=== PATIENT | female | born 1950 | race Caucasian/White ===

== ENCOUNTER → 2019-09-12 14:33 | Outpatient (CLI) | payer MEDICARE, OTHER, SELFPAY ==
--- NOTE | 2019-09-12 | DI.MG.S_ITS ---
BILATERAL DIGITAL SCREENING MAMMOGRAM 3D/2D WITH CAD: 09/12/2019 CLINICAL: Routine screening. Baseline exam. No prior exams were available for comparison. The tissue of both breasts is heterogeneously dense. This may lower the sensitivity of mammography. Current study was also evaluated with a Computer Aided Detection (CAD) system. No significant masses, calcifications, or other findings are seen in either breast. IMPRESSION: NEGATIVE There is no mammographic evidence of malignancy. A 1 year screening mammogram is recommended. This exam was interpreted at Station ID: [id number]. NOTE: For mammograms, a report in lay terms will be sent to the patient. Approximately 15% of breast malignancies will not be visualized mammographically. In the management of a palpable breast mass, a negative mammogram must not discourage biopsy of a clinically suspicious lesion. Electronically Signed By: Gissel bustamante/shanna:09/13/2019 11:09:04 letter sent: Normal Exam ACR BI-RADS Category 1: Negative [id number]
== END ==
PROVIDERS: Visit Provider Student in an Organized Health Care Education/Training Program
DX: Z12.31 Encounter for screening mammogram for malignant neoplasm of breast (principal); M85.852 Other specified disorders of bone density and structure, left thigh; Z78.0 Asymptomatic menopausal state; I10 Essential (primary) hypertension; F17.200 Nicotine dependence, unspecified, uncomplicated
CPT/HCPCS: 77063; 77067; 77080

== ENCOUNTER → 2019-10-03 13:29 | Outpatient (CLI) | payer MEDICARE, OTHER, SELFPAY ==
--- NOTE | 2019-10-03 | DI.MRI.S_ITS ---
PROCEDURE: MR LUMBAR SPINE WO CON INDICATIONS: Low back pain TECHNIQUE: Noncontrast sagittal T1 spin echo and T2 fast echo, sagittal STIR, axial T1 and T2 fast spin echo through the lumbar spine. In cases with scoliosis, additional coronal T2 fast spin echo may be performed. COMPARISON: None. FINDINGS: Image quality: Excellent. Alignment and Curvature: There is moderate dextroconvex scoliotic curvature with apex at L3. There is trace anterolisthesis of L3 on L2 or, trace retrolisthesis of L5 on S1. Bone Marrow: Marrow is of normal overall signal. Moderate reactive endplate changes are present at L2-3, minimal L3-4, L4-5 and L5-S1. No acute vertebral body compression fractures. Spinal Cord: Conus medullaris terminates at the L2 level. Visualized cord demonstrates normal signal and size. Paraspinous Soft Tissues: No paravertebral masses. Discs: Moderate to severe desiccation is present throughout the lumbar spine most notable at L4-5 and L5-S1. L1-L2: Mild disc bulge with mild spinal stenosis. There is a superimposed protrusion/extrusion which extends in the posterior right paracentral location extending caudally through much of the level of L2. No foraminal narrowing. Mild facet and ligamentum flavum hypertrophy. L2-L3: Mild disc bulge with moderate to severe spinal stenosis. Superimposed posterior central protrusion is present which becomes partially contiguous with protrusion/extrusion identified extending along the length of L2. Severe left and mild right foraminal narrowing with facet and ligamentum flavum hypertrophy. L3-L4: Mild disc bulge with severe spinal stenosis and canal compression. There is moderate to severe left foraminal narrowing with facet and ligamentum flavum hypertrophy. L4-L5: Mild disc bulge with severe spinal stenosis. Severe left foraminal narrowing with nerve root flattening. Facet and ligamentum flavum hypertrophy are present. L5-S1: The mild disc bulge with superimposed posterior central protrusion. There is severe right and mild to moderate left foraminal narrowing without nerve root flattening on the right. Facet hypertrophy is present. IMPRESSION: 1. Disc bulges are present at L1-2 and L2-3. There is protrusion/extrusion which extends between the L1-L2 and L2-3 disc spaces as described above. 2. Multilevel spinal stenosis predominantly secondary to scoliotic curvature as well as facet/ligamentum flavum arthropathy. It is most severe at L4-5. 3. Multilevel foraminal narrowing secondary to facet/ligamentum flavum arthropathy and scoliotic curvature most notable at L4-5 and L5-S1. Dictated by: Julianna López M.D. on 10/03/2019 at 15:57 Approved by: Julianna López M.D. on 10/03/2019 at 16:19
== END ==
PROVIDERS: Visit Provider Orthopaedic Surgery Orthopaedic Surgery of the Spine
DX: M51.26 Other intervertebral disc displacement, lumbar region (principal); M48.061 Spinal stenosis, lumbar region without neurogenic claudication; M48.07 Spinal stenosis, lumbosacral region
CPT/HCPCS: 72148

== ENCOUNTER → 2019-11-26 12:35 | Outpatient (CLI) | payer MEDICARE, OTHER, SELFPAY ==
--- NOTE | 2019-11-26 | DI.US.S_ITS ---
PROCEDURE: US ABDOMEN COMPLETE INDICATIONS: EPIGASTRIC PAIN TECHNIQUE: Real-time scanning was performed of the abdominal and retroperitoneal organs, with image documentation. COMPARISON: [facility], MR, MR LUMBAR SPINE WO CON, 10/03/2019, 13:38. FINDINGS: Liver: Liver is normal in size and homogeneous in echotexture except for presence of a small hyperechoic ovoid structure at the upper margin of the left hepatic lobe posteriorly, which by appearance is suggestive of a small hemangioma measuring 9 x 15 mm.. Gallbladder: The gallbladder appears normal Biliary ducts: Intrahepatic bile ducts are non-dilated. Extrahepatic bile duct caliber measures 3.8 mm. Normal is 6-7 mm or less in diameter, or 10 mm or less post-cholecystectomy. Pancreas: Not seen due to bowel gas. Spleen: Spleen is normal in size and homogeneous in echotexture. Kidneys: Kidneys are normal in size and echotexture. Right kidney measures 9.5 cm long; left kidney measures 9.0 cm long. No hydronephrosis or nephrolithiasis. No solid masses. Aorta: Visualized aorta is normal in caliber at less than 3 cm. the distal third of the aorta could not be seen due to bowel gas. Iliacs: Not seen due to bowel gas. IVC: Intrahepatic inferior vena cava is patent. Miscellaneous: No free abdominal fluid. IMPRESSION: Incidental note is made of a hyperechoic focus within the superior posterior margin of the left hepatic lobe, with an appearance most likely representing a hemangioma. Followup ultrasound is recommended, targeted single organ, in 6 months. Relatively poor visualization of the pancreas, and the distal third of the aorta and iliac arteries due to overlying bowel gas. Dictated by: Guido Sutton M.D. on 11/26/2019 at 13:49 Approved by: Guido Sutton M.D. on 11/26/2019 at 13:54
== END ==
PROVIDERS: PCP Student in an Organized Health Care Education/Training Program; Referring Provider Internal Medicine; Visit Provider Internal Medicine
DX: R10.13 Epigastric pain (principal); R63.4 Abnormal weight loss
CPT/HCPCS: 76700

== ENCOUNTER → 2020-03-13 14:56 | Outpatient (CLI) | payer MEDICARE, OTHER, SELFPAY ==
[2020-03-14 00:36] LABS: COVID19 Sendout Not Detected (Not Detect)
== END ==
PROVIDERS: PCP Student in an Organized Health Care Education/Training Program; Visit Provider Nurse Practitioner
DX: Z01.812 Encounter for preprocedural laboratory examination (principal)
CPT/HCPCS: 87635

== ENCOUNTER 2020-03-16 06:15 | Inpatient (IN) | payer MEDICARE, OTHER, SELFPAY ==
[2020-03-11 14:02] VITALS: BMI 19.1
[2020-03-16] VITALS (21 sets, daily range): BP systolic 96–162; BP diastolic 50–82; PULSE 71–100; RESP 12–18; TEMP 35.6–36.8; O2SAT 89–100; BMI 19.1
--- NOTE | 2020-03-16 | DI.RAD.S_ITS ---
PROCEDURE: XR LUMBAR SPINE 2-3V INDICATIONS: L2-3-4-5-S1 TLIF TECHNIQUE: 2 views of the lumbar spine were acquired. COMPARISON: None. FINDINGS: Bones: Bilateral transverse pedicle screws and vertical fixation rods have been placed from L2-S1, with interbody cage disc prosthesis devices at each of the intervening levels. Soft tissues: Overlying bowel gas pattern is normal. No suspicious soft tissue calcifications. IMPRESSION: Normal alignment established after L2-S1 posterior fusion bilaterally, with intervening interbody cage disc prosthesis devices placed. Dictated by: Guido Sutton M.D. on 03/16/2020 at 14:11 Approved by: Guido Sutton M.D. on 03/16/2020 at 14:22
[2020-03-16] MEDS: LACTATED RINGERS 1,000 ML 100 ML IV ×2 (07:00→11:14)
--- NOTE | 2020-03-16 07:36 | PM.PREOP ---
Pre-operative Note COVID-19 COVID-19 status: Negative Result date/Date tested (Pos, Neg/Pending): 03/14/20 Interval Note History & Physical reviewed/Exam performed by Physician: Yes Changes to H&P: No
[2020-03-16] MEDS: CEFAZOLIN 2 GM/100 ML FROZ.PIGGY IV (07:48)
[2020-03-16] MEDS: ACETAMINOPHEN IV 1,000 MG/100 ML VIAL 400 MG IV (08:00)
--- NOTE | 2020-03-16 08:23 | SUR.OPER ---
Prone on spine table, head in foam head support, padded chest and pelvic supports, gel pad at knees, lower legs supported by pillows; nipples, genitalia and toes free of pressure, arms secured on foam padded arm boards at <90 degrees abduction. Tape over blanket at thigh secured to table.
[2020-03-16] MEDS: BUPIVACAINE 0.25% W/ EPI 30 ML VIAL INJ (08:37)
[2020-03-16] MEDS: BUPIVACAINE LIPOSOME 266 MG/20 ML VIAL INJ (08:38)
--- NOTE | 2020-03-16 08:40 | SUR.OPER ---
GLASSES IN LABELED BAG TO PACU WITH PATIENT
[2020-03-16] MEDS: CEFAZOLIN 1 GM/50 ML FROZ.PIGGY IV ×2 (13:51→21:44)
--- NOTE | 2020-03-16 14:03 | P.OP_ITS ---
Operative Date/Time/Diagnoses Date of procedure: 03/16/20 Time of procedure: 08:03 Pre-op diagnosis: 1. Lumbar scoliosis 2. L2-S1 spondylolisthesis 3. Lumbar spinal stenosis Post-op diagnosis: same Procedure & Clinicians Procedure: 1. L2-3, L3-4, L4-5, L5-S1 Postero-lateral and posterior interbody fusion 2. L2-3, L3-4, L4-5, L5-S1 interbody cage placement. 3. L2-3, L3-4, L4-5, L5-S1 decompressive laminectomy with bilateral facetecomies 4. L2-3, L3-4, L4-5, L5-S1 Posterior segmental instrumentation 5. [place] of bone marrow from iliac crest 6. Utilization of microsurgical technique and operating microscope Same procedure as scheduled: Yes Indications: Patient has been having chronic back pain and worsening lumbar radiculopathy. Patient has scoliosis spondylolisthesis and spinal stenosis causing back pain and leg pain and leg weakness. Patient failed multiple conservative management with worsening pain weakness and numbness in her lower extremity. Patient has been having difficulty performing activity of daily living. After discussing risks benefits of treatment options, patient elected proceed with surgery. Surgeon: Gregg Almendarez Bicycle Assembler: Kayla Barnett Click Yes if Unassisted: No Anesthesia Type: General Operative Notes Closure Type: primary Specimen(s): none sent Prosthetic devices, grafts, tissues, transplants, or devices: Globus revolve screws, Rise cages Applied: catheter Estimated Blood Loss (mL): 250 Blood products transfused: none Procedure in detail: Patient was seen in the preoperative area. Risks and benefits of the surgery was discussed with the patient. Informed consent was obtained from the patient and placed in the chart. Surgical site was marked. Patient was taken to the operative room. General anesthesia was administered. Prophylactic antibiotic was given to the patient less than 30 min before the incision was made. Patient was placed into a prone position on the Fabian table. Patient's back was then prepped and draped in the sterile fashion. Time-o ut was performed at this time. Using AP and lateral C-arm imaging the interval between L2-S1 was identified and marked on patient's back. A 3 inch incision 2 in from midline was made on the left side first. The fascia was incised in line with skin incision. Globus MARS retractors was placed inside the incision and docked onto the L2, L3, L4 and L5 lamina. Using microsurgical technique and operating microscope, a L2, L3, L4 and L5 laminectomy and L2-3, L3-4, L4-5 L5-S1 facetectomy was performed using a Kerrison rongeur. Patient was found have severe neural foramen stenosis at all levels and moderate stenosis at L2-3 L3-4 and mild stenosis at L4-5-L5-S1. The stenosis was fully decompressed after decompression was completed at all levels. The disc space at L2-3, L3-4, L4-5, L5-S1 was identified. And a total diskectomy was performed at L2-3, L3-4, L4-5, L5-S1 level. The endplates were decorticated using a rasp and shaver. The total diskectomy and decortication was performed at L2-3, L3-4, L4-5, L5-S1 level in order to to accomplish a L2-3, L3-4, L4-5, L5-S1 fusion. The local bone from the laminectomy and facetectomy was saved for local bone grafting. After the total diskectomy and decortication was completed, Bio4 bone graft material was combined with local bone that was harvested earlier. At this time, a separate skin is incision was made over the iliac crest. A Jamshidi needle was inserted into the iliac crest through a separate skin incision. 5 cc of bone marrow aspiration was obtained through the separate skin incision using a Jamshidi needle from the iliac crest. The bone marrow aspiration was combined with local bone and the Bio4 bone grafting material. The bone grafting material was placed into the L2-3, L3-4, L4-5, L5- S1 interbody space along with three cages, one expandable cage at each level. The cages were expanded to their maximum height using the torque limiting screwdriver. At this time a mirror image incision was made on the right side. The fascia was incised in line with the skin incision. Globus MARS retractor was inserted and docked onto the L2-3, L3-4, L4-5, L5-S1 posterolateral gutter. Using the power drill, posterior-lateral decortication was performed at L2-3, L3-4, L4-5, L5-S1 level until bleeding cortical bone was identified. The remaining bone grafting material was placed into the L2-3, L3-4, L4-5 L5-S1 posterior lateral gutter he order to accomplish posterolateral fusion at the L2-3, L3-4, L4-5 L5-S1 levels. Using the double C-arm technique, pedicle screws were placed into the L2, L3, L4, L5, S1 pedicles bilaterally. This was done by placing the Jamshidi needle into the pedicles, then placing the guidewires over the Jamshidi needle, and finally placing the cannulated screws over the guidewires bilaterally. After the pedicle screws were placed, 2 titanium rods was locked into the heads of the pedicle screws using locking caps and torque limiting screwdriver. Total 10 pedicles screws were placed. Patient's scoliosis and spondylolisthesis was reduced using threaded reducers. All hardware placed had stable fixation. After all the hardware was placed, and confirmed with AP and lateral C-arm imaging, the wound was then irrigated with sterile normal saline and packed with Ray-Mony gauze for 3 min to accomplish hemostasis. After the gauze was removed the deep fascia was closed with #1 Vicryl suture. The subcutaneous layer was closed with 2-0 Vicryl. The skin was closed with skin finn. Patient tolerated the procedure well. There were no complications. Complications: none Post-operative Condition: stable Disposition: PACU Plan for aftercare: Admit to inpatient hospital
--- NOTE | 2020-03-16 14:23 | SUR.PHASEI ---
Report given to Lucinda
[2020-03-16] MEDS: HYDROMORPHONE 2 MG INJ IV (14:42)
[2020-03-16] MEDS: LORazepam 2 MG/ML INJ 0.25 MG IV (14:44)
--- NOTE | 2020-03-16 14:56 | SUR.PHASEI ---
Patient had been restless and was squirming. Patient is now relaxed and resting with eyes closed.
--- NOTE | 2020-03-16 15:05 | SUR.PHASEI ---
Patient able to follow some commands. Nods her head but is not attempting to verbalize often.
--- NOTE | 2020-03-16 15:40 | SUR.PHASEI ---
Report called to Akilah Sprague
--- NOTE | 2020-03-16 16:13 | SUR.PHASEI ---
Patient transferred to the floor on o2 monitor. Report given to Akilah. VS stable. Back dressing unchanged. Patient reported dull sensation to left leg. Is able to move BLE independently but has weakness, especially the LLE. Patient having difficulty finding words. IV saline locked. Glasses with patient.
[2020-03-16] MEDS: SODIUM CHLORIDE 0.9% 1,000 ML 100 ML IV (17:15)
[2020-03-16] MEDS: ACETAMINOPHEN 325 MG TABLET 650 MG PO (17:40)
[2020-03-16] MEDS: OXYCODONE IR 10 MG TABLET PO ×3 (17:40→23:44)
[2020-03-16] MEDS: BACLOFEN 10 MG TABLET PO (20:34)
[2020-03-16] MEDS: HYDROMORPHONE 0.5 MG INJ IV (20:34)
[2020-03-16] MEDS: SENNOSIDES 8.6 MG TABLET 17.2 MG PO (21:33)
[2020-03-16] MEDS: DOCUSATE 100 MG CAPSULE PO (21:37)
[2020-03-16] MEDS: estradioL 1 MG TABLET PO (21:43)
[2020-03-17] VITALS (10 sets, daily range): BP systolic 105–156; BP diastolic 51–67; PULSE 73–91; RESP 16–18; TEMP 36.1–37.1; O2SAT 95–100
[2020-03-17] MEDS: NICOTINE 21 MG PATCH TOP ×2 (00:24→20:01)
[2020-03-17] MEDS: hydrOXYzine pamoate 25 MG CAPSULE PO ×2 (00:26→15:46)
[2020-03-17] MEDS: HYDROMORPHONE 0.5 MG INJ IV ×3 (00:26→16:38)
--- NOTE | 2020-03-17 00:57 | PC.NURSE ---
Post-op notes: Nicolasa brought from PACU via hospital bed, awake, graugy, not able to answer more than 1-2 simple questions. Couldn't keep eyes open. Could not rate pain on pain scale, per DOCUMENT CONTROL COORDINATOR she was slow to wake up & had a long surgery. VS stable. She was restless, trying to sit herself up in bed, nurse and STRATEGIC SOURCING CONSULTANT found her twisting and gripping bed rails tight, asking can I sit up? She refused to lay on her side, wanting to sit up. I put bed in chair position, patient still asking to sit up even when sitting at 90 degrees. Could not verbalize pain level, per faces scale her pain was 7/10 and I medicated her with oxycodone & tylenol. Refused dinner reporting no appetite, able to take bites of pudding with pain meds. After 45 minutes she agreed to side lie to her right, log-rolling reinforced. Instructed not to twist. After that she dozed for about 30 minutes. She reports numbness to bilateral legs, L>R, can feel nurse hand on leg, good pedal pulses, legs slightly cool but after warm blankets applied her legs were warm [id number]. Wearing bilateral foot SCD's, sometimes she kicks them off when she is restless & repositioning in bed. At 1700 back drsg starting to leak from proximal end, small amt of sero-sang drainage, going outside of marking from DOCUMENT CONTROL COORDINATOR. I reinforced surgical drsg with ABD pad & paper tape. About 1 hour later ABD pad had 4 inch radius area of sero-sang drainage at proximal end of drsg, I notified Dr Mobley (on-call for Dr Almendarez) and told him about the drainage. He went into room & took off ABD pad, reinforcing surgical drsg with new ABD pad/paper tape. He ordered to reinforce ABD as needed overnight and said do not remove surgical drsg. Since then ABD observed with small area of shadow drainage but drsg otherwise dry & intact. Patient's forehead with few spots of erythema, face appears slightly puffy, groin folds also have dull pink erythema from positioning during surgery, per DOCUMENT CONTROL COORDINATOR report. Patient reporting increased pain when this nurse was busy attending to another patient. I asked social secretary that I was busy and to ask another nurse to help. packer fuser Hanna in room to medicate patient, saying she is not happy. Upon reassessment found patient relaxed, smiling, reporting good pain relief from IV Dilaudid and PO pain med. Visiting with her spouse at bedside. BP low 92/54 with patient sitting up in bed. Retaken after repositioning her flat, BP 113/62. HR 74, regular. PO Metoprolol held tonight. Pt requesting to stay on pain schedule. Full report given to NOC WILLIE Webster, she is aware of patient's pain and request for prn meds when due.
[2020-03-17] MEDS: SODIUM CHLORIDE 0.9% 1,000 ML 100 ML IV ×2 (03:05→08:59)
[2020-03-17] MEDS: OXYCODONE IR 10 MG TABLET PO ×2 (03:06→06:19)
--- NOTE | 2020-03-17 05:26 | PC.NURSE ---
Pt frequently complaining of severe back pain. Given oxycodone but patient insisting the IV stuff works so much better. I explained to pt that the dilaudid was for breakthrough of severe pain if POs don't really cut it but pt was pretty persistent in saying she absolutely needed the dilaudid. Pt called during the middle of the night and asked that i give her dilaudid in the morning when she wakes up. I explained to her again that it was for breakthrough pain and that we would try to wean her off of IV pain meds as the day goes on and patient made me promise to give her the dilaudid if she felt she needed it. I told her of course i would give it to her if this is the case. Her dressing started to become more saturated around 0500; patients pulled off the reinforced ABD pad and threw it out and then called. I replaced the ABD pad and left the original surgical dressing in place. [place] patent NS@100mL/hr
[2020-03-17 05:43] LABS: Hematocrit 25.4 % (36-46); Hemoglobin 8.6 g/dL (12.0-16.0)
[2020-03-17] MEDS: CEFAZOLIN 1 GM/50 ML FROZ.PIGGY IV (06:19)
--- NOTE | 2020-03-17 07:39 | PM.PNPO.1 ---
Subjective Subjective Date Patient Seen: 03/17/20 Time Patient Seen: 07:39 Interval history: Postop day 1 status post L2-S1 TLIF with Dr. Almendarez. Patient had increased pain last night. She was requiring IV Dilaudid between doses of 10 mg oxycodone. New numbness down left leg. Right-sided symptoms prior to surgery have resolved. Dressing became saturated last night and was reinforced. She has not been up with physical therapy yet. She has a Sands catheter in place. Exam Vital Signs (past 8 hours): - 03/17/20 00:40 03/17/20 04:14 Temperature 97.9 F 97.6 F Pulse Rate 73 78 Respiratory Rate 18 18 Blood Pressure 105/63 110/60 Pulse Oximetry 100 100 Oxygen Delivery Method Nasal Cannula Oxygen Flow Rate 2 Narrative Exam Narrative: Patient able to sit up and moved to the edge of the bed. Dressing removed. No active drainage from incisions. Dressing saturated with serosanguineous fluid. New dressing applied. Sensation intact to light touch throughout BLEs. DP pulses symmetrical. Full strength in bilateral lower extremities. Objective Labs Result Diagrams: 03/17/20 05:15 Labs: Laboratory Results - last 24 hr 03/17/20 05:15 Hgb 8.6 L Hct 25.4 L Assessment & Plan Post-op Postoperative Procedures: Procedures Operation Date: 03/16/20 07:45 Actual Procedures Side Surgeon p L2-S1 TLIF Not Applicable Gregg Almendarez MD Patient will mobilize with PT today. Advised her to take her time transitioning from sitting to standing. We will recheck H&H tomorrow. 500 mL bolus this morning. If patient is mobilizing around the room can DC Sands catheter today. If patient is having increased pain she can take Dilaudid 2 mg po for severe pain. Will start Decadron 10 mg now, 4 mg every 6 hours for 24 hour steroid burst given new radicular symptoms and pain. Once patient is mobilizing safely, voiding without catheter, and adequate pain control she can discharge home.
[2020-03-17] MEDS: SODIUM CHLORIDE 0.9% 500 ML 1000 ML IV (07:57)
[2020-03-17] MEDS: ACETAMINOPHEN 325 MG TABLET 650 MG PO ×3 (07:58→19:55)
[2020-03-17] MEDS: DOCUSATE 100 MG CAPSULE PO ×2 (07:58→19:56)
[2020-03-17] MEDS: CALCIUM CARBONATE 500 MG TAB 1500 MG PO (07:59)
[2020-03-17] MEDS: CHOLECALCIFEROL (VITAMIN D3) 5,000 UNIT TABLET 5000 UNIT PO (07:59)
[2020-03-17] MEDS: DEXAMETHASONE 10 MG/ML VIAL IV (08:06)
[2020-03-17] MEDS: HYDROMORPHONE 2 MG TABLET PO ×2 (08:59→11:56)
--- NOTE | 2020-03-17 09:04 | CM.DANOTE ---
DCP/Assessment: Reviewed chart. Patient is a 69yr old female admitted to [facility] for elective spine surgery performed on 03-16-[address] Almendarez. PCP is Zoe Marcus. Primary payor is 1)Medicare 2)Rain. Met with patient and spouse/Deion at bedside explained role. Patient reports that she plans to d/c home when medically stable. Patient with therapy evaluation pending. Patient reports that she has all needed DME in the home. Spouse available to assist as needed. P: Anticipate home when medically stable. CM team to follow closely. 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 Yes History Provided By Patient,Significant Other Prior Living Arrangements House Household Members spouse Type of transporation used prior to Drives own vehicle admit Independent with ADL's Yes Is patient alert and oriented? Yes Caregiver for Another No DME Already Rented / Owned FWW / Walker,Bedside Commode Barriers to Discharge No Discharge Plan Home Transportation Arrangement Family to provide transport Whiteboard Updated in Patient Room with Yes name and ext. # of Lumber Stacker Review Status In Process Next Review Type Continued Stay Review Pre-Anesthesia Assessment Start: 03/11/20 14:02 Freq: Status: Active Protocol: Document 03/11/20 14:02 CAB (Rec: 03/11/20 14:48 CAB [id number]) Pre-Anesthesia Assessment PAC Comment Pt requests nicotine patch Preferred Name Christina Patient Information Reviewed Via Phone Assessment Assessment Completed With Patient Comment Labs/EKG done per pt in December not here-COVID screen @ 03/13 Primary Care Provider Zoe Marcus Seen Specialist in Last 12 Months Yes Specialist Seen Orthopedist,Other Comment GI Primary Language Sami Central Office Inspector Required No Height 165.1 cm Weight 52.163 kg Body Mass Index (BMI) 19.1 Hearing Ability Normal Visual Assist Glasses Dentition Type Teeth, Natural Present,Teeth, Broken Barriers to Learning None Hx Anesthesia Reactions No Hx Family Anesthesia Reaction No Hx Malignant Hyperthermia No Hx Blood Transfusions No Anesthesia Review Requested No alcohol intake current alcohol intake frequency 0-2 drinks per day Smoking Status Current every day smoker Tobacco type cigarettes Smoking packs per day 0.5 Substance Use Type does not use Pain Present Pain Reported Musculoskeletal Symptoms Abnormal Gait,Back Pain, Difficulty Walking,Joint Pain, Muscle Spasms,Muscle Weakness, Radiating Pain into Limb History of Falling (Recent or History of No ) Patient is completely paralyzed or No completely immobile Mental Status Oriented to own ability Is patient on oxygen? No Does patient have DON/SOB No Hx Sleep Apnea No Currently Taking a Beta [place] Yes: Metoprolol Can You Climb a Flight of Stairs Without Yes SOB Hx Chest Pain No Hx SOB No Hx Syncope or Dizziness No Anti-Coagulant Therapy No Has a Vocal Teacher No Cardiac Testing No Hx Pacemaker/ICD No Pacemaker Rep Required? No Cardiac Clearance Received Not Applicable Diet Type At Home Regular dysphagia No Urinary Catheter Present No Hx Urinary Self Catheterization No Diabetes No Patient No Lactating No Hx Drug Resistant Organism No Presence of External or Internal Medical No Devices Have you had any close contact with No someone diagnosed with COVID-19? Evaluation/Screening for possible COVID- Yes 19 infection completed? Marital Status Lives With spouse Prior Living Arrangements House Number of Floors (Floors) One Floor Support System Spouse Does the Patient Have Assistance After Yes Surgery Patient Discharge Plan Description Return Home Comment Pt advised 2-4 day length of stay per surgeon Feels Safe in Current Environment Yes Been Physically Hurt or Threatened By a No Person in Current Environment Do you have thoughts of harming yourself None or others? Are you currently considering suicide? No Do you have a plan to hurt yourself or No Plan others? Do You Have Any Spiritual Beliefs That No May Affect Your HC Choices? Do You Have Any Cultural Practices That No May Affect Your HC Choices? Comment Juan Who Can We Speak to About Patient's Care Family, friends Identifying Code for Release of Patient Declines to issue Information Health Care Proxy/Next of Kin Edward () Health Care Proxy Emergency Contact Name Zulema (stepdaughter) Emergency Contact Advance Directives? 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
--- NOTE | 2020-03-17 11:03 | OT.IP.EVAL ---
Current Diagnoses Other idiopathic scoliosis, thoracolumbar region (03/16/20) Spondylolisthesis, lumbosacral region (03/16/20) Spinal stenosis, lumbar region with neurogenic claudication (03/16/20) Surgery Performed Operation Date: 03/16/20 07:45 Actual Procedures p L2-S1 TLIF(Not Applicable) - Gregg Almendarez MD Past Medical History (Last Updated 03/11/20 @ 14:17 by Mercy Maynard RN) Arthritis (Acute) Easy bruisability (Acute) HTN (hypertension) (Acute) Sciatica (Acute) Skin cancer (Acute) Surgical History (Last Updated 03/11/20 @ 14:17 by Mercy Maynard RN) H/O bladder repair surgery (Acute) History of colonoscopy (Acute) History of esophagogastroduodenoscopy (EGD) (Acute) History of hysterectomy (Acute) Occupational Therapy Inpatient Evaluation/Re-Eval M1 PT/OT-IP Prior Functional Status Start: 03/17/20 12:22 Freq: NEEDED Status: Active Protocol: Document 03/17/20 10:20 [facility] (Rec: 03/17/20 12:42 [facility] [id number]) Medical Review Prior Functional Status Medical History Reviewed Yes Communication WNL. Pt is able to make needs known and is an effective verbal communicator. Mobility and Gait Pt is an independent community ambulator but is limited in distance due to chronic back pain. She has most difficulty with stairs. Activities of Daily Living and IADL's Independent with ADL's Social History Household Members spouse Living Arrangements House Number of Floors (Floors) One Floor Number of Stairs To Enter/Railing? 1STE through garage. No railing. Home Environment Standard Height Toilet,Tub/ Shower Home Equipment Front Wheel Walker,Four Wheel Walker,Straight Cane,Bedside Commode,Hand Held Shower,Long Handled Sponge,Optical Brightener Maker Helper,Grab Bars In Shower Additional Social History Comment Pt lives with her spouse, Deion, who is able and will be available to assist as needed at discharge. M2 OT-IP Current Condition Start: 03/17/20 12:22 Freq: Status: Active Protocol: Document 03/17/20 10:20 [facility] (Rec: 03/17/20 12:42 [facility] [id number]) Occupational Therapy Current Condition Current Condition Evaluation Date 03/17/20 Treatment Diagnosis Lumbar spinal stenosis, s/p TLIF L2-S1 Diagnosis Onset Date 03/16/20 Post Operative Precautions Lumbar Precautions Log Roll,No Twisting,Limit Bending,Lifting Restriction of 10 lbs,Gait Belt above Incisional Area M3 OT- IP Subjective and Pain Start: 03/17/20 12:22 Freq: Status: Active Protocol: Document 03/17/20 10:20 [facility] (Rec: 03/17/20 12:42 [facility] [id number]) OT- Subjective Occupational Therapy Visit Type Type Initial Evaluation Visit Start Time 10:20 Visit Stop Time 11:03 Notes 43 Occupational Therapy Visit Comments Patient Comments Pt willing to get up , pt's present in the room. Patient/Caregiver Goals To go home. OT Pain Assessment Pain When Pain Assessed At Rest Pain Present Pain Present Pain Reported Location back Intensity 5 M4 OT- IP ADL's Start: 03/17/20 12:22 Freq: Status: Active Protocol: Document 03/17/20 10:20 [facility] (Rec: 03/17/20 12:42 [facility] [id number]) OT [id number] General Evaluation Self-Feeding Ability Independent OT ADL-Grooming Comments OT Grooming Comments Educated of back precautions to spit into a cup versus bend at her back for toothbrushing needs. OT ADL-Oral Care Comments Oral Care Comments Pt not wanting to do at this time. OT ADL-Dressing General Eval Lower Body Dressing Ability Maximum Assistance Areas Needing Assistance Socks Comments OT Dressing Comments Pt states her to assist and usually wears slippers in the house. Educated to make sure to wear well fitting footwear to prevent form tripping especially when backing up. Pt has a temperature inspector at home and educated or LB dressing needs. OT ADL-Toileting General Evaluation Toileting Ability Total Assistance Areas Needing Assistance Empty Catheter or Colostomy Pt states usually wipes form front to back even after a bowel movement. Educated may be best to wipe while standing from behind or have use of toilet paper aid. Pt insistent that she will be fine how she does it now. Comments OT Toileting Comments Sands in. OT ADL-Bathing Comments OT Bathing Comments Not at this time. M5 OT- IP IADL's Start: 03/17/20 12:22 Freq: Status: Active Protocol: Document 03/17/20 10:20 [facility] (Rec: 03/17/20 12:42 [facility] [id number]) OT-Instrumental Activities of Daily Living Home Safety Awareness Awareness of Need for Assistance at Home Good Awareness Ability to Problem Solve Emergency Able to Problem Solve Situations Medication Management Medication Management No Deficits Identified Money Management Money Management No Deficits Identified Meal Preparation Meal Preparation Comments to assist. Benefits Analyst Benefits Analyst Comments to assist. M6 OT- IP Functional Cognition Start: 03/17/20 12:22 Freq: Status: Active Protocol: Document 03/17/20 10:20 [facility] (Rec: 03/17/20 12:42 [facility] [id number]) Cognitive Factors Limiting Selfcare Function Cognitive Ability Level of Alertness Alert Patient Orientation Name,Place,Situation Attention Span Ability Capable of Focused Attention, Capable of Sustained Attention Ability to Follow Commands Able to Follow One Step Commands Safety Awareness Decreased Ability to Apply Precautions,Underestimates Need for Assistance Cognitive Comments Cognitive Assessment Comments Pt a bit impulsive and needing cues to incorporate back precautions for needs. VC to have the FWW in front or her while turning around, to take not twist while turning, and slow down. Pt needing vc to push up with at least one hand from surface sitting on when coming to stand. OT- Vision and Hearing OT- Hearing Assessment OT- Hearing Assessment WFL M7 OT- IP Mobility and Balance Start: 03/17/20 12:22 Freq: Status: Active Protocol: Document 03/17/20 10:20 [facility] (Rec: 03/17/20 12:42 [facility] [id number]) OT- Bed Mobility Assessment Rolling Type of Rolling Roll to Left Level of Assistance Minimal Assistance Supine to Sit Supine to Sit Assist Minimal Assistance Sit to Supine Sit to Supine Assist Minimal Assistance OT-Transfer Assessment Sit to and From Stand Sit to and from Stand Minimal Assistance Transfers Transfer Ability Minimal Assistance Technique Transfer Destination Bed Transfer Technique Stand Step Pivot Devices Transfer Assistive Devices Gait Belt,Front Wheeled Walker OT- Gait Assessment Gait Gait Assistance Required: Minimum Assistance,1 Person Assist Comments Gait Ability Comments Pt at times leans to the left due to decreased sensations in left foot. OT- Balance Assessment Sitting Balance and Reactions Static Sitting Balance Ability Normal Dynamic Sitting Balance Ability Good Standing Balance and Reactions Static Standing Balance Ability Poor M8 OT- IP Objective Assessments Start: 03/17/20 12:22 Freq: Status: Active Protocol: Document 03/17/20 10:20 [facility] (Rec: 03/17/20 12:42 [facility] [id number]) OT Gross Range of Motion Upper Extremity Range of Motion Assessment Within Functional Limits M9 OT- IP Assessment and Plan Start: 03/17/20 12:22 Freq: Status: Active Protocol: Document 03/17/20 10:20 [facility] (Rec: 03/17/20 12:42 [facility] [id number]) OT Summary Assessment and Plan Potential Rehabilitation Potential Good Analytic Complexity at Evaluation Low Summary OT Impairments Pain,Functional Mobility, Grooming,Dressing,Toileting, Bathing,Toilet Transfers, Shower Transfers,Activity Tolerance Progress Towards Goals Progressing Toward Goals Assessment Summary Pt low complexity and at this time just needing ROME for mobility needs. Pt has a supportive and to complete caregiver training tomorrow . In addition to continue to see pt for OT to work on safety for back precautions for all Adl and functional mobility needs. Goals Grooming Goal Independent Dressing Goal Independent Toileting Goal Independent Bathing Goal Standby Assistance Toilet Transfer Goal Independent Shower Transfer Goal Standby Assistance Patient/Caregiver Education Goal Demonstrate Post-Op Precautions Days to Meet Goals 5 Frequency of Treatment Frequency Of Treatment Once a Day Treatment Plan OT Treatment Plan ADL Training,Functional Cognition Training,Functional Mobility,Patient/Family Education,Discharge Planning Other Treatment Recommendations and Next LB dressing,shower Treatment Focus Discharge Recommendations OT Discharge Recommendations Home with Assistance Home Equipment Needs shower chair Transportation Needs at Discharge Private Vehicle
--- NOTE | 2020-03-17 11:48 | PT.IIE ---
Current Diagnoses Other idiopathic scoliosis, thoracolumbar region (03/16/20) Spondylolisthesis, lumbosacral region (03/16/20) Spinal stenosis, lumbar region with neurogenic claudication (03/16/20) Surgery Performed Operation Date: 03/16/20 07:45 Actual Procedures p L2-S1 TLIF(Not Applicable) - Gregg Almendarez MD Surgical History (Last Updated 03/11/20 @ 14:17 by Mercy Maynard RN) H/O bladder repair surgery (Acute) History of colonoscopy (Acute) History of esophagogastroduodenoscopy (EGD) (Acute) History of hysterectomy (Acute) Medical History (Last Updated 03/11/20 @ 14:17 by Mercy Maynard RN) Arthritis (Acute) Easy bruisability (Acute) HTN (hypertension) (Acute) Sciatica (Acute) Skin cancer (Acute) Physical Therapy Inpatient Evaluation/Re-Eval M1 PT/OT-IP Prior Functional Status Start: 03/17/20 08:34 Freq: NEEDED Status: Active Protocol: Document 03/17/20 11:18 AW (Rec: 03/17/20 11:47 AW [id number]) Medical Review Prior Functional Status Medical History Reviewed Yes Communication WNL. Pt is able to make needs known and is an effective verbal communicator. Mobility and Gait Pt is an independent community ambulator but is limited in distance due to chronic back pain. She has most difficulty with stairs. Activities of Daily Living and IADL's Independent with ADL's Social History Household Members spouse Living Arrangements House Number of Floors (Floors) One Floor Number of Stairs To Enter/Railing? 1STE through garage. No railing. Home Environment Standard Height Toilet,Tub/ Shower Home Equipment Front Wheel Walker,Four Wheel Walker,Straight Cane,Bedside Commode,Hand Held Shower, Film Inspector,Grab Bars In Shower Additional Social History Comment Pt lives with her spouse, Deion, who is able and will be available to assist as needed at discharge. M2 PT-IP Current Condition Start: 03/17/20 08:34 Freq: NEEDED Status: Active Protocol: Document 03/17/20 11:18 AW (Rec: 03/17/20 11:47 AW [id number]) Physical Therapy Current Condition Current Condition Evaluation Date 07/07/20 Treatment Diagnosis L2-3 L3-4 L4-5 L5-S1 TLIF; difficulty in walking Onset Date 03/16/20 Precautions Lumbar Precautions Log Roll,No Twisting,Limit Bending,Lifting Restriction of 10 lbs,Gait Belt above Incisional Area M3 PT-IP Subjective Start: 03/17/20 08:34 Freq: NEEDED Status: Active Protocol: Document 03/17/20 11:18 AW (Rec: 03/17/20 11:47 AW [id number]) Subjective Physical Therapy Visit Type Type Initial Evaluation Visit Start Time 10:28 Visit Stop Time 10:48 Total Visit Minutes 20 Notes Co-eval with OT Physical Therapy Visit Comments Patient Comments Pt is willing to participate with PT Patient Goals Pt would like to get back to walking with less pain Therapy Pain Assessment Pain When Pain Assessed During Mobility Pain Present Pain Present Pain Reported Location back Intensity 5 Scale Used 5/10 at rest; unchanged with mobility Pain Management Techniques Re-positioning,Timing of Activity with Medications M4 PT-IP Mobility and Gait Start: 03/17/20 08:34 Freq: NEEDED Status: Active Protocol: Document 03/17/20 11:18 AW (Rec: 03/17/20 11:47 AW [id number]) PT-Bed Mobility Assessment Rolling Type of Rolling Log Rolling Level of Assist Minimal Assistance,1 Person Assistance Supine to Sit Supine to Sit Minimal Assistance,1 Person Assistance Sit to Supine Sit to Supine Minimal Assistance,1 Person Assistance Scooting Scooting to Edge of Bed Standby Assistance Scooting Up and Down in Bed Standby Assistance PT-Transfer Assessment Sit to and From Stand Sit to and from Stand Minimal Assistance,1 Person Assistance,Use of Upper Extremities Equipment Transfer Assistive Device Gait Belt,Front Wheeled Walker Orthotic/Prosthetic Devices or Brace: No Transfers Transfer Destination Bed Transfer Technique pt ambulated with FWW Transfer Ability Level of Assist Minimal Assistance,1 Person Assistance,Use of Upper Extremities Comments Mobility Comments Pt was sitting EOB on her right side as PT entered the room. She completed log roll and sit to supine min A x 1 and max cues for sequencing in order to avoid twisting movements. She lay on the bed for assessment, reporting numbness/dull sensation of her L LE which was more pronounced distally. She then rolled to her left side, requiring min assist for sidelying to sit transition. Pt stood using FWW min A x 1. In initial standing, she was observed to lean toward the left. Pt was able to take small marching steps using FWW at the edge of the bed. Single leg stance on her right leg was normal; she had decreased ability to stand on her left leg (5 sec R; <2 sec L). Pt then ambulated around the bed and back using FWW and min A x 1. With increased distance, her leftward lean became less obvious. Pt returned to the left side of the bed and completed sit to supine min A x 1 and max cues to avoid twisting. She was positioned on the bed with alarm on, SCD's applied, call light and all needs within reach. Gait Assessment Gait Gait Assistance Required: Minimum Assistance,1 Person Assist Distance (Feet) 30 Able to Maintain Weight Bearing Status Yes During Gait Assistive Devices Assistive Device Gait Belt,Front Wheeled Walker Orthotic/Prosthetic Devices or Brace: No Gait Deviations General Gait Pattern Antalgic,Decreased Stride Length,Decreased Feet Clearance,Flexed Trunk,Lateral Trunk Lean Factors Limiting Gait Function Factors Limiting Gait Function Decreased Activity Tolerance, Decreased Sensation,Decreased Strength,Difficulty Following Directions,Limited Range of Motion,Pain,Poor Balance,Poor Safety Awareness Comments Gait Comments PT reviewed post op spinal precautions with the pt and provided extensive cues during gait assessment but pt frequently moved in a twisting fashion, requiring cues for correction and to move on block with shoulders and hips in line. Gait was notable for a leftward lean which became less obvious as the pt became more confident with the left LE. Stair Climbing Assessment Comments Stair Climbing Comments Not assessed. PT-Balance Assessment Sitting Balance and Reactions Static Sitting Balance Ability Good Dynamic Sitting Balance Ability Good Standing Balance and Reactions Static Standing Balance Ability Fair Dynamic Standing Balance Ability Fair Device Used FWW Balance Tests Single Limb Standing R 5 sec; L <2 sec M5 PT-IP Objective Assessments Start: 03/17/20 08:34 Freq: NEEDED Status: Active Protocol: Document 03/17/20 11:18 AW (Rec: 03/17/20 11:47 AW [id number]) Orientation Orientation/Cognition Level of Alertness Alert Orientation Name,Day of Week,Place, Situation Language Function Ability No Deficits Noted Safety Awareness Decreased Safety Awareness Gross Range of Motion Lower Extremity ROM Assessment Within Functional Limits Strength Lower Extremity Strength Assessment Bilaterally Impaired Hip 3-/5 Knee 4/5 Ankle 4+/5 Comments Strength Comments strength assessed in supine Coordination Assessment Gross Coordination Gross Coordination WNL Sensation Assessment Sensation Gross Sensation Left LE Impaired Light Touch Impaired Proprioception (Position) Impaired Sensation Description Numbness Comments Sensation Comments Dull sensation L LE Muscle Tone Muscle Tone WNL Yes M6 PT-IP Treatment Start: 03/17/20 08:34 Freq: NEEDED Status: Active Protocol: Document 03/17/20 11:18 AW (Rec: 03/17/20 11:47 AW [id number]) Physical Therapy Treatment Education Education Provided Precautions,Weight Bearing Status,Post-Op Packet,Safety Other Treatments Other Treatment Performed Provided education on role of PT, plan of care, post op spinal precautions, and safe use of FWW. M7 PT-IP Assessment and Plan Start: 03/17/20 08:34 Freq: NEEDED Status: Active Protocol: Document 03/17/20 11:18 AW (Rec: 03/17/20 11:47 AW [id number]) PT Summary Assessment and Plan Potential Rehabilitation Potential Good Status of Condition at Evaluation Evolving Summary Impairments Pain,ROM,Strength,Balance, Sensation,Cognition,Bed Mobility,Transfers,Gait, Activity Tolerance Assessment Summary Christina is a 69 yo woman seen for PT evaluation on POD1 following L2-3 TLIF. At baseline, she is independent in all regards but ambulation and stairs were limited due to pain. On evaluation, pt is requiring min assist for all mobility. She presents with new onset L LE numbness, leftward lean in stance and during gait. Pt will benefit from continued acute PT to continue to reinforce post op precautions and for gait training with FWW. Following caregiver training with pt's spouse, PT anticipates this pt will be safe to discharge to home with assist once medically cleared. Goals Bed Mobility Goal Standby Assistance Transfer Goal Standby Assistance,Front Wheeled Walker Gait Goal Standby Assistance,Front Wheel Walker Gait Distance 200 Other Goals - up/down platform step using FWW SBA - pt will teach back spinal precautions - pt will complete log roll without twisting and without need for verbal cues Days to Meet Goals 3 Frequency of Treatment Frequency Of Treatment Twice a Day Treatment Plan Physical Therapy Treatment Plan Bed Mobility Training,Transfer Training,Gait Training, Therapeutic Exercise,Balance Retraining,Post Op Education, Discharge Planning,Hot or Cold Pack Other Recommendations and Next Treatment review spinal precautions, bed Focus mobility, gait training with FWW Recommendations To Nursing Amount of Assist Needed 1 Person Assist Discharge Recommendations PT Discharge Recommendations Home with Assistance Transportation Needs at Discharge Private Vehicle
[2020-03-17] MEDS: DEXAMETHASONE 4 MG/ML VIAL IV ×3 (13:54→23:38)
[2020-03-17] MEDS: HYDROMORPHONE 4 MG TABLET PO ×4 (13:54→23:38)
--- NOTE | 2020-03-17 15:31 | PT-IP ANOTE ---
Pt in bed upon arrival into room, pt is shaking and stated her pain has not improved since she got meds at 1354, pt states her pain is 7/10. Pt requested to stay in bed at this time. RN informed.
--- NOTE | 2020-03-17 15:40 | PC.NURSE ---
Shift summary: Late entry Alert and oriented X3. Dressing to lower back changed this morning with ortho PA. New shadow drainage since dressing change outlined in docie. Continues to report numbness/dullness to BLE's (L>R). Circulation WNL, PP+. Denies numbness/tingling or weakness in UE's. Pain control has been an ongoing issue. Was switched from PO Oxycodone to PO Dilaudid, and was also started on an IV steriod. The lowest she rated her pain was 4/10. Declined ice packs when offered, assisted with repositioning PRN. Got NS bolus first thing this morning, IVF left running r/t BP. Sands patent, patient agreeable to removal once mobilizing better. Able to make needs known and calls appropriately. Light and belongings within reach, bed alarm on.
--- NOTE | 2020-03-17 16:01 | PC.NURSE ---
Addendum entered by Akilah Sprague R.N. 03/17/20 20:05: Nicolasa has rated her back pain at 4/10 since meds given earlier this evening, says change in medication regimen has helped so much-I would like to stay here if I can. Next due times written on patient white board. Ambulating to BR with 1 SBA, reports vague numbness to LLE, gait steady. [place] DC'd almost 2 hours ago, [place] output 650. Patient now sitting on toilet to attempt voiding. Original Note: Pain 10/10: Patient's spouse in hallway, expressing concern for Nicolasa's pain, saying this is not ok, and why would you want her to be in this much pain? Nicolasa is in bed sitting up at 90 degrees, knees bent, moderate full body tremors, very pale. Verbally rated pain 10/10, said I can't wait until 5! I immediately called [facility], spoke with Elaine and Kassie, nurses for Dr Almendarez, reporting patient's pain, tremor & spouse concern. Kassie told me that Dr Almendarez is in with a patient but she would have him call me when he gets out of the room. I medicated Nicolasa with Vistaril, it is too early for me to give PO Dilaudid per prn schedule.
[2020-03-17] MEDS: OXYCODONE ER 10 MG TAB 20 MG PO (16:36)
[2020-03-17] MEDS: diazePAM 5 MG TABLET PO ×3 (16:36→23:38)
[2020-03-17] MEDS: METOPROLOL ER 50 MG TABLET 100 MG PO (19:56)
[2020-03-17] MEDS: SENNOSIDES 8.6 MG TABLET 17.2 MG PO (19:56)
[2020-03-17] MEDS: estradioL 1 MG TABLET PO (19:56)
[2020-03-18] VITALS (12 sets, daily range): BP systolic 120–148; BP diastolic 55–84; PULSE 67–90; RESP 12–18; TEMP 36.4–37.1; O2SAT 98–100
[2020-03-18] MEDS: HYDROMORPHONE 4 MG TABLET PO ×6 (03:01→22:24)
[2020-03-18] MEDS: OXYCODONE ER 10 MG TAB 20 MG PO ×2 (05:29→16:40)
[2020-03-18] MEDS: DEXAMETHASONE 4 MG/ML VIAL IV ×3 (05:30→18:27)
[2020-03-18 05:34] LABS: Hematocrit 21.6 % (36-46); Hemoglobin 7.4 g/dL (12.0-16.0); Mean Corpuscular HGB Conc 34.1 % (30-36); Mean Corpuscular Hemoglobin 35.6 PG (26-34); Mean Corpuscular Volume 104.5 fL (80-100); Platelet Count 114 X10^3/uL (150-400); Red Blood Cell Count 2.07 X10^6/uL (4.0-5.2); Red Cell Distribution Width 13.2 % (11.6-14.8); White Blood Cell Count 9.3 X10^3/uL (4.5-11.0)
--- NOTE | 2020-03-18 06:52 | PC.NURSE ---
Patient pain was controlled this night with 4mg dilaudid Q4, and scheduled Oxycontin 20mg. Patient HH this am was 7.4,21.6. I telephoned Dr. Almendarez with results and he gave a a verbal order for 2 units PRBC's at 0634.
[2020-03-18] MEDS: CHOLECALCIFEROL (VITAMIN D3) 5,000 UNIT TABLET 5000 UNIT PO (09:03)
[2020-03-18] MEDS: CALCIUM CARBONATE 500 MG TAB 1500 MG PO (09:03)
[2020-03-18] MEDS: DOCUSATE 100 MG CAPSULE PO ×2 (09:03→21:10)
--- NOTE | 2020-03-18 09:27 | PC.NURSE ---
Pt sitting up in bed after going to the BR to void. Pt denies dizziness, headache, nausea, or shortness of breath. Pt is asymptomatic r/t anemia. Pt dsg to back changed. New IV started in RFA. Consent signed for blood transfusion. Start time for 1st unit of blood changed to 0920 due to prior IV leaking. Pt to report any transfusion reaction symptoms to RN immediately.
--- NOTE | 2020-03-18 09:43 | OT.IP.TRT ---
Current Diagnoses Other idiopathic scoliosis, thoracolumbar region (03/16/20) Spondylolisthesis, lumbosacral region (03/16/20) Spinal stenosis, lumbar region with neurogenic claudication (03/16/20) Surgery Performed Operation Date: 03/16/20 07:45 Actual Procedures p L2-S1 TLIF(Not Applicable) - Gregg Almendarez MD Occupational Therapy Treatment Note M2 OT-IP Current Condition Start: 03/17/20 12:22 Freq: Status: Active Protocol: Document 03/17/20 10:20 [facility] (Rec: 03/17/20 12:42 [facility] [id number]) Occupational Therapy Current Condition Current Condition Evaluation Date 03/17/20 Treatment Diagnosis Lumbar spinal stenosis, s/p TLIF L2-S1 Diagnosis Onset Date 03/16/20 Post Operative Precautions Lumbar Precautions Log Roll,No Twisting,Limit Bending,Lifting Restriction of 10 lbs,Gait Belt above Incisional Area M3 OT- IP Subjective and Pain Start: 03/17/20 12:22 Freq: Status: Active Protocol: Document 03/18/20 11:45 [facility] (Rec: 03/18/20 11:50 [facility] [id number]) OT- Subjective Occupational Therapy Visit Type Type Treatment Note Visit Start Time 09:43 Visit Stop Time 10:04 Total Visit Minutes 9 Occupational Therapy Visit Comments Patient Comments Pt getting blood and not wanting to get up at this time . Patient/Caregiver Goals TO go home today. OT Pain Assessment Pain When Pain Assessed At Rest Pain Present Pain Present Denied Pain M4 OT- IP ADL's Start: 03/17/20 12:22 Freq: Status: Active Protocol: Document 03/18/20 11:45 [facility] (Rec: 03/18/20 11:50 [facility] [id number]) OT [id number] General Evaluation Self-Feeding Ability Independent OT ADL-Grooming Comments OT Grooming Comments Pt states good understanding to bend at hips versus round her back for grooming needs. OT ADL-Dressing Comments OT Dressing Comments Pt states not wanting to have LB dressing equipment and that her will assist her with all needs. Encouraged pt 's to have good body mechanics while assisting pt . OT ADL-Toileting Comments OT Toileting Comments Pt not sure if wanting to get toilet paper aid and feels will be fine, in addition her will be there to assist as needed. OT ADL-Bathing Comments OT Bathing Comments Pt refused. M5 OT- IP IADL's Start: 03/17/20 12:22 Freq: Status: Active Protocol: Document 03/17/20 10:20 [facility] (Rec: 03/17/20 12:42 [facility] [id number]) OT-Instrumental Activities of Daily Living Home Safety Awareness Awareness of Need for Assistance at Home Good Awareness Ability to Problem Solve Emergency Able to Problem Solve Situations Medication Management Medication Management No Deficits Identified Money Management Money Management No Deficits Identified Meal Preparation Meal Preparation Comments to assist. Machine Chocolate Molder Machine Chocolate Molder Comments to assist. M9 OT- IP Assessment and Plan Start: 03/17/20 12:22 Freq: Status: Active Protocol: Document 03/18/20 11:45 [facility] (Rec: 03/18/20 11:50 [facility] [id number]) OT Summary Assessment and Plan Potential Rehabilitation Potential Good Analytic Complexity at Evaluation Low Summary OT Impairments Pain,Functional Mobility, Grooming,Dressing,Toileting, Bathing,Toilet Transfers, Shower Transfers,Activity Tolerance Progress Towards Goals Progressing Toward Goals Assessment Summary Went over OT needs and safety for ADL's and both pt and stated good understanding for all . Pt looking to go home today pending lab numbers after given blood. Goals Grooming Goal Independent Dressing Goal Independent Toileting Goal Independent Bathing Goal Standby Assistance Toilet Transfer Goal Independent Shower Transfer Goal Standby Assistance Patient/Caregiver Education Goal Demonstrate Post-Op Precautions Days to Meet Goals 1 Frequency of Treatment Frequency Of Treatment Once a Day Treatment Plan OT Treatment Plan ADL Training,Functional Cognition Training,Functional Mobility,Patient/Family Education,Discharge Planning Other Treatment Recommendations and Next Shower if still here. Treatment Focus Discharge Recommendations OT Discharge Recommendations Home with Assistance Home Equipment Needs Shower chair with back Transportation Needs at Discharge Private Vehicle
--- NOTE | 2020-03-18 11:31 | PM.PN.1 ---
Exam Vital Signs (past 8 hours): - 03/18/20 05:52 03/18/20 07:40 03/18/20 09:05 Temperature 98.1 F 98.6 F Pulse Rate 90 89 Respiratory Rate 16 16 Blood Pressure 148/63 H 145/65 H Pulse Oximetry 100 100 99 03/18/20 09:06 03/18/20 09:24 03/18/20 10:24 Temperature 98.6 F 98.7 F 98.7 F Pulse Rate 87 67 73 Respiratory Rate 16 16 12 Blood Pressure 145/65 H 120/55 L 120/55 L Pulse Oximetry 100 Oxygen Delivery Method Room Air Oxygen Flow Rate 0 Objective Labs Result Diagrams: 03/18/20 05:15 Labs: Laboratory Results - last 24 hr 03/18/20 03/18/20 05:15 07:18 WBC 9.3 RBC 2.07 L Hgb 7.4 L Hct 21.6 L MCV 104.5 H MCH 35.6 H MCHC 34.1 RDW 13.2 Plt Count 114 L Blood Type O Positive Antibody Screen Negative Crossmatch See Detail Assessment & Plan Assessment & Plan narrative: Patient is admitted after surgery POD#2 s/p L2-S1 TLIF. Patient has been stable and progressing with physical therapy. Patient is neurovascularly intact on exam. Patient has no signs or symptoms of DVT. Patient's dressing is clean dry and intact. Doing well and progressing as planned. Decreased h/h. Transfuse 2U PRBC. Repeat H/H after transfusion. If stable after transfusion will plan to d/c today.
--- NOTE | 2020-03-18 11:50 | PT-IP ANOTE ---
Pt not seen this am, on medical hold this am per nursing due to H & H 7.4/21.6 being given 2 units of blood. Pt willing to work in the afternoon with PT if safe for mobility. Pt requested that assess 1 step mgt in room only with PF step using FWW not feeling up to going down to the stairs at this time.
--- NOTE | 2020-03-18 15:57 | PT.IPTN ---
Current Diagnoses Other idiopathic scoliosis, thoracolumbar region (03/16/20) Spondylolisthesis, lumbosacral region (03/16/20) Spinal stenosis, lumbar region with neurogenic claudication (03/16/20) Surgery Performed Operation Date: 03/16/20 07:45 Actual Procedures p L2-S1 TLIF(Not Applicable) - Gregg Almendarez MD Physical Therapy Treatment Note M2 PT-IP Current Condition Start: 03/17/20 08:34 Freq: NEEDED Status: Active Protocol: Document 03/17/20 11:18 [facility] (Rec: 03/17/20 11:47 [facility] [id number]) Physical Therapy Current Condition Current Condition Evaluation Date 03/17/20 Treatment Diagnosis L2-3 L3-4 L4-5 L5-S1 TLIF; difficulty in walking Onset Date 03/16/20 Precautions Lumbar Precautions Log Roll,No Twisting,Limit Bending,Lifting Restriction of 10 lbs,Gait Belt above Incisional Area M3 PT-IP Subjective Start: 03/17/20 08:34 Freq: NEEDED Status: Active Protocol: Document 03/18/20 15:37 SP (Rec: 03/18/20 16:27 SP [email or web address]) Subjective Physical Therapy Visit Type Type Treatment Note Visit Start Time 15:37 Visit Stop Time 15:57 Total Visit Minutes 20 Notes in room to complete caregiver trainging. Number of MAGICIAN HELPER Visits 1 Physical Therapy Visit Comments Patient Comments Pt is willing to participate. Patient Goals To return home with to assist her. Therapy Pain Assessment Pain When Pain Assessed At Rest Pain Present Pain Present Pain Reported Location back Intensity 6 Scale Used at rest, premedicated less than hr prior to PT. Pain Management Techniques Re-positioning,Timing of Activity with Medications M4 PT-IP Mobility and Gait Start: 03/17/20 08:34 Freq: NEEDED Status: Active Protocol: Document 03/18/20 15:37 SP (Rec: 03/18/20 16:27 SP [email or web address]) PT-Bed Mobility Assessment Rolling Type of Rolling Log Rolling,Roll to Right,Roll to Left Level of Assist Standby Assistance Supine to Sit Supine to Sit Contact Guard Assistance, Minimal Assistance,1 Person Assistance Sit to Supine Sit to Supine Standby Assistance Scooting Scooting to Edge of Bed Standby Assistance Scooting Up and Down in Bed Standby Assistance PT-Transfer Assessment Sit to and From Stand Sit to and from Stand Standby Assistance,Use of Upper Extremities Equipment Transfer Assistive Device Gait Belt,Front Wheeled Walker Transfers Transfer Destination Bed Transfer Technique pt ambulated with FWW Transfer Ability Level of Assist Standby Assistance,Contact Guard Assistance,Use of Upper Extremities Comments Mobility Comments Pt was elevated supine in bed when arrived, in room completed caregiver training: gait belt donning and assist with all mobility needed. Log roll to R with HOB flat to assimulate home set up SBA, initially Min A R sidelying to sitting but CGA when performed second time, SBA scoot to EOB, CGA sit<> stand using FWW. Pt ambulated using FWW around end of bed to platform step and back approx 20 ft total, ascend/descend platforms step using FWW in room CGA provided by with patient able to reposition FWW herself, stable . Sit to supine sBA including log roll and scoot up in bed herself. Pt was reclined in bed with pillows requested assist under feet before left. Pt reported pain in LB 8/10, just received her pain medication in the past hour but wanted to complete PT to assess stair mgt to allow ability to prep for safe DC home with . Pt is able to complete all acute mobility needs and therapy recommending pt is able to return home with to assist her when medically stable. Gait Assessment Gait Gait Assistance Required: Minimum Assistance,1 Person Assist Distance (Feet) 20 Able to Maintain Weight Bearing Status Yes During Gait Assistive Devices Assistive Device Gait Belt,Front Wheeled Walker Orthotic/Prosthetic Devices or Brace: No Gait Deviations General Gait Pattern Antalgic,Decreased Stride Length,Decreased Feet Clearance,Flexed Trunk,Lateral Trunk Lean Factors Limiting Gait Function Factors Limiting Gait Function Decreased Activity Tolerance, Decreased Sensation,Decreased Strength,Difficulty Following Directions,Limited Range of Motion,Pain,Poor Balance,Poor Safety Awareness Comments Gait Comments see mobility comments. Stair Climbing Assessment Evaluation Level of Assist On Stairs Contact Guard Assistance Devices Stair Climbing Assistive Devices Front Wheel Walker Technique/Endurance Stair Climbing Direction Ascend and Descend Stair Climbing Technique Step to Step Number of Steps Climbed 1 Stair Climbing Set # Repetitions (reps) 1 Comments Stair Climbing Comments See mobility comments: ascend/ descend 1 platform step CGA provided by using FWW. PT-Balance Assessment Sitting Balance and Reactions Static Sitting Balance Ability Good Dynamic Sitting Balance Ability Good Standing Balance and Reactions Static Standing Balance Ability Fair Dynamic Standing Balance Ability Fair Device Used FWW M5 PT-IP Objective Assessments Start: 03/17/20 08:34 Freq: NEEDED Status: Active Protocol: Document 03/17/20 11:18 AW (Rec: 03/17/20 11:47 AW [id number]) Orientation Orientation/Cognition Level of Alertness Alert Orientation Name,Day of Week,Place, Situation Language Function Ability No Deficits Noted Safety Awareness Decreased Safety Awareness Gross Range of Motion Lower Extremity ROM Assessment Within Functional Limits Strength Lower Extremity Strength Assessment Bilaterally Impaired Hip 3-/5 Knee 4/5 Ankle 4+/5 Comments Strength Comments strength assessed in supine Coordination Assessment Gross Coordination Gross Coordination WNL Sensation Assessment Sensation Gross Sensation Left LE Impaired Light Touch Impaired Proprioception (Position) Impaired Sensation Description Numbness Comments Sensation Comments Dull sensation L LE Muscle Tone Muscle Tone WNL Yes M6 PT-IP Treatment Start: 03/17/20 08:34 Freq: NEEDED Status: Active Protocol: Document 03/18/20 15:37 SP (Rec: 03/18/20 16:27 SP [email or web address]) Physical Therapy Treatment Education Education Provided Precautions,Safety M7 PT-IP Assessment and Plan Start: 03/17/20 08:34 Freq: NEEDED Status: Active Protocol: Document 03/18/20 15:37 SP (Rec: 03/18/20 16:27 SP [email or web address]) PT Summary Assessment and Plan Potential Rehabilitation Potential Good Status of Condition at Evaluation Evolving Summary Impairments Pain,ROM,Strength,Balance, Sensation,Cognition,Bed Mobility,Transfers,Gait, Activity Tolerance Assessment Summary pt is requiring SBA- min assist for bed mobility, SBA- CGA during WB mobility using FWW. Pt reported no numbness in LE today. completed caregiver training including support as needed to patient during bed mob, transfers, gait, 1 step mgt using FWW. Pt is able to discharge to home with assist once medically cleared. Goals Bed Mobility Goal Standby Assistance Transfer Goal Standby Assistance,Front Wheeled Walker Gait Goal Standby Assistance,Front Wheel Walker Gait Distance 200 Other Goals - up/down platform step using FWW SBA - pt will teach back spinal precautions - pt will complete log roll without twisting and without need for verbal cues Days to Meet Goals 3 Frequency of Treatment Frequency Of Treatment Twice a Day Treatment Plan Physical Therapy Treatment Plan Bed Mobility Training,Transfer Training,Gait Training, Therapeutic Exercise,Balance Retraining,Post Op Education, Discharge Planning,Hot or Cold Pack Other Recommendations and Next Treatment review spinal precautions, bed Focus mobility, further distance gait training with FWW Recommendations To Nursing Amount of Assist Needed 1 Person Assist Discharge Recommendations PT Discharge Recommendations Home with Assistance Transportation Needs at Discharge Private Vehicle
[2020-03-18] MEDS: ACETAMINOPHEN 325 MG TABLET 650 MG PO (16:41)
[2020-03-18] MEDS: hydrOXYzine pamoate 25 MG CAPSULE PO (16:42)
[2020-03-18] MEDS: diazePAM 5 MG TABLET PO ×2 (16:44→22:23)
[2020-03-18 18:51] LABS: Hematocrit 33.1 % (36-46); Hemoglobin 11.2 g/dL (12.0-16.0)
--- NOTE | 2020-03-18 20:08 | PC.NURSE ---
LATE NOTES,AFTER FINALLY GETTING LAB TO DRAW H/H ON PATIENT,SEVERAL HOURS LATE,RESULTS CALLED TO DR. MERCADO, NO D/ HOME TONIGHT,RECHECK H/H IN AM
[2020-03-18] MEDS: SENNOSIDES 8.6 MG TABLET 17.2 MG PO (21:10)
[2020-03-18] MEDS: METOPROLOL ER 50 MG TABLET 100 MG PO (21:10)
[2020-03-18] MEDS: estradioL 1 MG TABLET PO (21:11)
[2020-03-18] MEDS: NICOTINE 21 MG PATCH TOP (21:11)
[2020-03-19] MEDS: HYDROMORPHONE 4 MG TABLET PO ×2 (01:50→08:13)
[2020-03-19 03:33] VITALS: BP 142/74; PULSE 79; RESP 16; TEMP 36.2; O2SAT 96
[2020-03-19] MEDS: OXYCODONE ER 10 MG TAB 20 MG PO (05:32)
[2020-03-19] MEDS: DEXAMETHASONE 4 MG/ML VIAL IV ×2 (05:33)
[2020-03-19 05:45] LABS: Hematocrit 30.3 % (36-46); Hemoglobin 10.4 g/dL (12.0-16.0)
[2020-03-19] MEDS: DOCUSATE 100 MG CAPSULE PO (08:13)
[2020-03-19] MEDS: CHOLECALCIFEROL (VITAMIN D3) 5,000 UNIT TABLET 5000 UNIT PO (08:13)
[2020-03-19] MEDS: diazePAM 5 MG TABLET PO (08:13)
[2020-03-19] MEDS: CALCIUM CARBONATE 500 MG TAB 1500 MG PO (08:14)
--- NOTE | 2020-03-19 08:20 | PM.PN.1 ---
Exam Vital Signs (past 8 hours): - 03/19/20 03:33 Temperature 97.2 F L Pulse Rate 79 Respiratory Rate 16 Blood Pressure 142/74 H Pulse Oximetry 96 Oxygen Delivery Method Room Air Oxygen Flow Rate 0 Objective Labs Result Diagrams: 03/19/20 05:15 Labs: Laboratory Results - last 24 hr 03/18/20 03/18/20 03/19/20 07:18 18:30 05:15 Hgb 11.2 L 10.4 L Hct 33.1 L 30.3 L Blood Type O Positive Antibody Screen Negative Crossmatch See Detail Assessment & Plan Assessment & Plan narrative: POD#3 s/p L2-S1 TLIF. S/p 2u PRBC yesterday and responded appropriately. Will plan for d/c today. Neurovascularly intact on exam. Dressing clean and dry.
[2020-03-19 09:00] VITALS: BP 154/76; PULSE 80; RESP 16; TEMP 36.8; O2SAT 99
--- NOTE | 2020-03-19 09:13 | PT-IP ANOTE ---
Pt refusing therapy this morning at 9:13 AM, stating she feels ready to go home and has already been in and out of bed multiple times this morning and does not want to get out of bed until d/c.
--- NOTE | 2020-03-19 09:56 | PC.NURSE ---
Pt sitting up in chair.Dressed and ready for discharge home with Spouse. Dsg to back has been changed to a new Coversite. Went over d/c instructions with Pt and Spouse-discussed d/c meds, time of last dose, reviewed stroke education, when to call MD/S&S of infection, follow up, and encouraged Pt to get up slowly, drink plenty of fluids to prevent constipation or dehydration, and follow her back precautions. Pt denied further questions and was taken out to POV via w/c with Spouse and all belongings.
== END 2020-03-19 09:59 | disposition home or self-care (01) | DRG 454 ==
PROVIDERS: Orthopaedic Surgery Adult Reconstructive Orthopaedic Surgery; Physician Assistant Surgical; Admitting Provider Orthopaedic Surgery Orthopaedic Surgery of the Spine; PCP Student in an Organized Health Care Education/Training Program; Referring Provider Orthopaedic Surgery Orthopaedic Surgery of the Spine; Visit Provider Orthopaedic Surgery Orthopaedic Surgery of the Spine
PROC: 0SG10AJ Fusion of 2 or more Lumbar Vertebral Joints with Interbody Fusion Device, Posterior Approach, Anterior Column, Open Approach (ICD-10-PCS; principal; 2020-03-16 07:45)
DX: M41.26 Other idiopathic scoliosis, lumbar region (principal); D62 Acute posthemorrhagic anemia; M41.25 Other idiopathic scoliosis, thoracolumbar region; M43.17 Spondylolisthesis, lumbosacral region; M48.062 Spinal stenosis, lumbar region with neurogenic claudication; I10 Essential (primary) hypertension; F17.210 Nicotine dependence, cigarettes, uncomplicated; G89.18 Other acute postprocedural pain; Z01.812 Encounter for preprocedural laboratory examination; Z11.59 Encounter for screening for other viral diseases
CPT/HCPCS: 36415; 36430; 72100; 76000; 85014; 85018; 85027; 86850; 86900; 86901; 87635; 97161; 97165; 97530; 97535; 99406; C1776; P9016; C9290; J0131; J0330; J0690; J1100; J1170; J2060; J2250; J2405; J2704; J3010

== ENCOUNTER 2020-03-20 20:29 | Emergency (ER) | payer MEDICARE, OTHER, SELFPAY ==
[2020-03-16 16:00] VITALS: BMI 19.1
[2020-03-20 20:53] VITALS: BP 178/78; PULSE 98; RESP 10; TEMP 36.6; O2SAT 94; BMI 21.2
--- NOTE | 2020-03-20 20:53 | ED_ITS ---
HPI - General Adult General Chief complaint: Altered Mental Status Stated complaint: recent back surgery,lethargic,sleep all day Time Seen by Provider: 03/20/20 20:52 Source: patient and family () Mode of arrival: Ambulatory Limitations: no limitations History of Present Illness HPI narrative: Patient is a 69-year-old female who earlier this week underwent a multilevel lumbar fusion. During her stay patient also received blood transfusion secondary to anemia. Patient was discharged a couple days later. Since that time patient has been taking her medications at home. These are being medical writer by her . Patient's states that over the past 24 hours he is not the patient has been much more somnolent than normal. He states that he has been giving her medications as directed. Patient is still complaining of back pain which is not new and has been the same since postop. Is not having any problems with bowel or bladder. No radiation down into her lower extremities. Related Data Home Medications Medication Instructions Recorded Confirmed aspirin 81 mg PO BEDTIME 03/11/20 03/16/20 baclofen 10 mg PO Q6-8H PRN 03/11/20 03/11/20 calcium carbonate [Calcium 500] 1,500 mg PO DAILY 03/11/20 03/16/20 cholecalciferol (vitamin D3) 5,000 mcg PO DAILY 03/11/20 03/16/20 [Vitamin D3] estradiol 1 mg PO BEDTIME 03/11/20 03/16/20 hydrocodone-acetaminophen 1 tab PO BID 03/11/20 03/11/20 meloxicam 7.5 mg PO BEDTIME 03/11/20 03/16/20 metoprolol succinate 100 mg PO BEDTIME 03/11/20 03/16/20 Previous Rx's Medication Instructions Recorded diazepam 5 mg PO Q4HR PRN #60 tab 03/18/20 hydromorphone 4 mg PO Q4-5H PRN #80 tab 03/18/20 oxycodone [OxyContin] 20 mg PO Q12H #40 tab 03/18/20 Allergies Allergy/AdvReac Type Severity Reaction Status Date / Time nickel Allergy Intermediate Rash Verified 03/20/20 20:50 latex Allergy Mild Rash Verified 03/20/20 20:50 Review of Systems Constitutional Constitutional: Denies fever(s) and Denies headache(s) Eyes Eyes: Denies change in vision ENT Ears, Nose, Mouth, and Throat: Denies vertigo, Denies dizziness and Denies headache(s) Cardiovascular Cardiovascular: Denies chest pain and Denies dyspnea Respiratory Respiratory: Denies dyspnea Gastrointestinal Gastrointestinal: Denies abdominal pain Genitourinary Genitourinary: Denies dysuria Genitourinary: Denies dysuria Musculoskeletal Musculoskeletal: Reports back pain, Denies muscle cramps, Denies muscle weakness, Denies stiffness and Denies tingling Integumentary/Breasts Skin/Breast: Denies rash Neurologic Neurologic: Reports behavioral changes, Denies burning sensations, Reports conf usion, Denies vertigo, Denies dizziness, Denies headache(s), Denies tingling and Denies paresthesias Psychiatric Psychiatric: Reports behavioral changes and Reports confusion Hematologic/Lymphatic Hematologic/Lymphatic: Denies easy bleeding and Denies easy bruising Allergic/Immunologic Allergic/Immunologic: Denies urticaria Patient History Medical History Arthritis (Acute) Easy bruisability (Acute) HTN (hypertension) (Acute) Sciatica (Acute) Skin cancer (Acute) Surgical History (Updated 03/11/20 @ 14:17 by Mercy Maynard RN) H/O bladder repair surgery (Acute) History of colonoscopy (Acute) History of esophagogastroduodenoscopy (EGD) (Acute) History of hysterectomy (Acute) Social History household members: spouse Smoking Status: Current every day smoker alcohol intake: current Smoking Status: Current every day smoker alcohol intake frequency: 0-2 drinks per day Substance Use Type: does not use Exam Initial Vital Signs Initial Vital Signs: Vital Signs Temperature 97.9 F 03/20/20 20:53 Pulse Rate 98 H 03/20/20 20:53 Respiratory Rate 10 L 03/20/20 20:53 Blood Pressure 178/78 H 03/20/20 20:53 Pulse Oximetry 94 03/20/20 20:53 Const General: cooperative and comfortable Limitations: mental status not altered HENMT Head: normal to inspection and normocephalic Resp Effort & Inspection: normal respiratory effort Auscultation: clear to auscultation bilaterally Cardio Rate: regular rate Rhythm: regular rhythm GI Inspection: non-distended Palpation: soft and No firm Skin Other: Patient with a clean dry and intact dressing lower lumbar region. Without surrounding erythema. Does have some ecchymosis over her left hip. Neuro General: patient alert, patient awake and patient oriented x3 Cognition: normal cognition Speech: speech normal Sensory Exam: no sensory deficits noted Extrem General: normal to inspection and capillary refill normal Psych Appearance: grossly normal and well kempt Scores GCS [place] coma scale eye opening: Spontaneous [place] coma scale verbal response: Orientated [place] coma scale motor response: Obey commands Melba coma scale total score: 15 Course Orders Ordered: ED Orders 03/20/20 20:45 Basic Metabolic Panel Stat Complete Blood Count AUTO DIFF Stat Vital Signs Vital signs: Vital Signs - 8 hr 03/20/20 20:53 03/20/20 21:20 03/20/20 21:30 Temperature 97.9 F Pulse Rate 98 H 92 H 99 H Respiratory Rate 10 L Blood Pressure 178/78 H Pulse Oximetry 94 91 90 L 03/20/20 22:00 Temperature Pulse Rate 91 H Respiratory Rate Blood Pressure Pulse Oximetry 91 Medical Decision Making Lab Data Lab results reviewed: Yes I reviewed the patient's lab results. Result diagrams: 03/20/20 20:45 03/20/20 20:45 Labs: Lab Results 03/20/20 03/20/20 Range/Units 20:45 20:45 WBC 13.2 H (4.5-11.0) X10^3/uL RBC 3.83 L (4.0-5.2) X10^6/uL Hgb 12.7 (12.0-16.0) g/dL Hct 37.9 (36-46) % MCV 98.8 D (80-100) fL MCH 33.2 (26-34) PG MCHC 33.6 (30-36) % RDW 17.1 H (11.6-14.8) % Plt Count 217 (150-400) X10^3/uL Neut % (Auto) 74.4 (50-75) % Lymph % (Auto) 16.0 L (25-40) % [place] % (Auto) 7.5 (3-14) % Eos % (Auto) 1.8 L (2-4) % Baso % (Auto) 0.3 (0-2) % Neut # (Auto) 9800 H (9389-1035) /uL Lymph # (Auto) 2100 (4369-8467) /uL [place] # (Auto) 1000 H (0-900) /uL Eos # (Auto) 200 (0-450) /uL Baso # (Auto) 0 (0-100) /uL Sodium 131 L (137-145) mmol/L Potassium 4.5 (3.4-5.1) mmol/L Chloride 95 L (98-107) mmol/L Carbon Dioxide 33 H (22-32) mmol/L BUN 17 (7-17) mg/dL Creatinine 0.55 (0.52-1.04) mg/dL Estimated GFR > 60.0 (>60) mL/min BUN/Creatinine Ratio 30.9 H (6-22) Glucose 106 (80-110) mg/dL Calcium 9.8 (8.4-10.2) mg/dL MDM Narrative Medical decision making narrative: Patient's labs are relatively unremarkable. Does have a slight leukocytosis however does not have a left shift. I suspect that this is related to her surgery. I feel that infection is unlikely. Discussion with the does appear that the patient is most likely being overdose with her medications. He did give her baclofen last evening. He then has been given her 5 mg of p.o. diazepam every 4 hours. He has also been giving her 4 mg of hydromorphone every 4 hours and also given her 20 mg of oxycodone every 12 hours per this is what has been prescribed to her. She asked the patient if she felt like she was getting any relief from the diazepam and she states that she did not know. We had a long discussion regarding her medications. I feel that it is best if she stops/cut back on the diazepam. I feel that 5 mg every 4 hours in conjunction with the other medications given the fact that this is more muscle relaxer instead of a pain medication that this is is causing her to become more drowsy. Patient's expressed understanding of this. Plan to be is to have her try to eliminate this medication and if she feels like that she can not at least cut it in half. Patient was alert oriented x3. GCS 15. No focal neurologic deficits. I feel that her back discomfort is most likely expected given her recent surgery. I feel we can hold on further workup for now. Patient and given return precautions and follow-up instructions. They expressed understanding but. Discharge Plan Departure Patient Disposition: Home Clinical Impression: Accidental drug overdose Qualifiers: Encounter type: initial encounter Qualified Code(s): T50.901A - Poisoning by unspecified drugs, medicaments and biological substances, accidental (unintentional), initial encounter Discharge Date/Time: 03/20/20 22:26 Instructions: DI for Taking Pain Medication Activity Restrictions/Additional Instructions: I would recommend that you try to stop taking the diazepam/Valium. If you feel like this medication is helping I would recommend that you take half of a tablet (2.5 mg) in try to spread the time frame out to every 8-12 hours. Take the rest your medications as directed. Return to the emergency department for any new or worsening symptoms Prescriptions: No Action metoprolol succinate 100 mg Tablet Extended Release 24 Hr 100 mg PO BEDTIME RF: 0 hydrocodone-acetaminophen 10-325 mg Tablet 1 tab PO BID RF: 0 aspirin 81 mg Tablet,Delayed Release (Dr/Ec) 81 mg PO BEDTIME RF: 0 meloxicam 7.5 mg Tablet 7.5 mg PO BEDTIME RF: 0 estradiol 1 mg Tablet 1 mg PO BEDTIME RF: 0 baclofen 10 mg Tablet 10 mg PO Q6-8H PRN (Reason: Muscle spasms) RF: 0 calcium carbonate [Calcium 500] 500 mg calcium (1,250 mg) Tablet 1,500 mg PO DAILY RF: 0 cholecalciferol (vitamin D3) [Vitamin D3] 125 mcg (5,000 unit) Tablet 5,000 mcg PO DAILY RF: 0 hydromorphone 4 mg Tablet 4 mg PO Q4-5H PRN (Reason: Pain, Severe (7-10)) Qty: 80 RF: 0 diazepam 5 mg Tablet 5 mg PO Q4HR PRN (Reason: spasm) Qty: 60 RF: 0 oxycodone [OxyContin] 10 mg Tablet,Oral Only,Ext.Rel.12 Hr 20 mg PO Q12H Qty: 40 RF: 0 Referrals: Zoe Marcus PA-C [Primary Care Provider] -
[2020-03-20 21:14] LABS: Add Manual Diff / Slide Review NO; Basophils Absolute Auto 0 /uL (0-100); Basophils Percent Auto 0.3 % (0-2); Eosinophils Absolute Auto 200 /uL (0-450); Eosinophils Percent Auto 1.8 % (2-4); Hematocrit 37.9 % (36-46); Hemoglobin 12.7 g/dL (12.0-16.0); Lymphocytes Absolute Auto 2100 /uL (1100-4500); Mean Corpuscular HGB Conc 33.6 % (30-36); Mean Corpuscular Hemoglobin 33.2 PG (26-34); Mean Corpuscular Volume 98.8 fL (80-100); Monocytes Absolute Auto 1000 /uL (0-900); Monocytes Percent Auto 7.5 % (3-14); Neutrophils Absolute Auto 9800 /uL (1500-7000); Neutrophils Percent Auto 74.4 % (50-75); Platelet Count 217 X10^3/uL (150-400); Red Blood Cell Count 3.83 X10^6/uL (4.0-5.2); Red Cell Distribution Width 17.1 % (11.6-14.8); White Blood Cell Count 13.2 X10^3/uL (4.5-11.0)
[2020-03-20 21:16] LABS: BUN Creatinine Ratio 30.9 (6-22); Blood Urea Nitrogen 17 mg/dL (7-17); Calcium 9.8 mg/dL (8.4-10.2); Carbon Dioxide 33 mmol/L (22-32); Chloride 95 mmol/L (98-107); Estimated Glomerular Filt Rate > 60.0 mL/min (>60); Glucose 106 mg/dL (80-110); Sodium 131 mmol/L (137-145)
[2020-03-20 21:17] LABS: HEMOLYSIS 135 (0-50)
[2020-03-20 21:18] LABS: Potassium 4.5 mmol/L (3.4-5.1)
[2020-03-20 21:20] VITALS: PULSE 92; O2SAT 91
--- NOTE | 2020-03-20 21:22 | PC.NURSE ---
Pt had lumbar back surgery with Dr Almendarez L1-L5 on 03/16. pt being given pain meds around the clock as prescribed. brings pt to ED for pain control and decreased responsiveness and lethargy. Pt states she is in pain, unable to provide number. Eyes opening to sound. HR 92 BP 178/78. dressing intact. labeled 03/19 at 0930. also states she needed 2 units of blood on 03/17. appears pink and warm. awaiting further assessment.
[2020-03-20 21:30] VITALS: PULSE 99; O2SAT 90
[2020-03-20 22:00] VITALS: PULSE 91; O2SAT 91
== END 2020-03-20 22:26 | disposition home or self-care (01) ==
PROVIDERS: Emergency Provider Emergency Medicine; PCP Student in an Organized Health Care Education/Training Program
DX: T50.901A Poisoning by unspecified drugs, medicaments and biological substances, accidental (unintentional), initial encounter (principal)
CPT/HCPCS: 36415; 80048; 85025; 99283; 99284

== ENCOUNTER → 2020-04-29 18:39 | Outpatient (ROUT) | payer MEDICARE, OTHER, SELFPAY ==
[2020-03-16 16:00] VITALS: BMI 19.1
[2020-04-29 18:50] LABS: Add Manual Diff / Slide Review NO; Basophils Absolute Auto 100 /uL (0-100); Basophils Percent Auto 0.6 % (0-2); Eosinophils Absolute Auto 800 /uL (0-450); Eosinophils Percent Auto 7.6 % (2-4); Hematocrit 35.5 % (36-46); Hemoglobin 11.8 g/dL (12.0-16.0); Lymphocytes Absolute Auto 1500 /uL (1100-4500); Lymphocytes Percent Auto 13.8 % (25-40); Mean Corpuscular HGB Conc 33.3 % (30-36); Mean Corpuscular Hemoglobin 32.2 PG (26-34); Mean Corpuscular Volume 96.6 fL (80-100); Monocytes Absolute Auto 900 /uL (0-900); Monocytes Percent Auto 8.1 % (3-14); Neutrophils Absolute Auto 7500 /uL (1500-7000); Neutrophils Percent Auto 69.9 % (50-75); Platelet Count 301 X10^3/uL (150-400); Red Blood Cell Count 3.67 X10^6/uL (4.0-5.2); Red Cell Distribution Width 16.3 % (11.6-14.8); White Blood Cell Count 10.8 X10^3/uL (4.5-11.0)
[2020-04-29 18:56] LABS: Alanine Aminotransferase 15 IU/L (<35); Albumin Globulin Ratio 1.3 (1.0-2.8); Alkaline Phosphatase 115 U/L (38-126); Aspartate Aminotransferase 24 IU/L (14-36); BUN Creatinine Ratio 24.5 (6-22); Bilirubin Total 0.5 mg/dL (0.2-1.3); Blood Urea Nitrogen 13 mg/dL (7-17); Calcium 10.1 mg/dL (8.4-10.2); Carbon Dioxide 28 mmol/L (22-32); Chloride 93 mmol/L (98-107); Estimated Glomerular Filt Rate > 60.0 mL/min (>60); Globulin 3.1 g/dL (1.7-4.1); Glucose 136 mg/dL (80-110); HEMOLYSIS < 15 (0-50); Potassium 4.1 mmol/L (3.4-5.1); Sodium 131 mmol/L (137-145); Total Protein 7.1 g/dL (6.3-8.2)
== END ==
PROVIDERS: PCP Student in an Organized Health Care Education/Training Program; Visit Provider Student in an Organized Health Care Education/Training Program
DX: I10 Essential (primary) hypertension (principal); R53.83 Other fatigue; R39.9 Unspecified symptoms and signs involving the genitourinary system
CPT/HCPCS: 80053; 85025; 87077; 87086; 87186